=== PATIENT | female | born 1995 | race African-American/Black ===

== ENCOUNTER 2020-04-12 10:06 | Emergency (ER) | payer BC ==
[~2020-04-12] VITALS: Ht 167.6 cm; Wt 54.3 kg
--- NOTE | 2020-04-12 10:40 | NUR ---
PT A&OX4, RESP EVEN & UNLABORED, SPEECH CLEAR, SKIN WNL. C/O VAG BLEED & CRAMPING. STARTED SPOTTING YESTERDAY. WELL PULLER APPT YESTERDAY AT [facility] FOR PELVIC PAIN/CRAMPING X 2 MONTHS; NEG PG URINE TEST. LMP 03/27/20. DENIES HX STD. HAS BEEN TAKING IBUPROFEN - LAST DOSE AT MIDNIGHT. HAS U/S SCHEDULED FOR THIS SATURDAY.
--- NOTE | 2020-04-12 10:54 | NUR ---
TO U/S PER ADRIANA
[2020-04-12 11:06] LABS: MICROSCOPIC AUTO
[2020-04-12 11:35] LABS: BASOPHILS # (AUTO) 0.04 x10^3/uL (0-0.1); BASOPHILS % (AUTO) 1 % (0-1); EOSINOPHILS # (AUTO) 0.15 x10^3/uL (0-0.4); EOSINOPHILS % (AUTO) 2 % (1-7); LYMPHOCYTES # (AUTO) 2.37 x10^3/uL (1-3.4); LYMPHOCYTES % (AUTO) 37 % (22-44); MD NO; MEAN CORPUSCULAR HGB CONC 32.6 g/dL (32.4-35.8); MONOCYTES # (AUTO) 0.46 x10^3/uL (0.2-0.8); MONOCYTES % (AUTO) 7 % (2-9); NEUTROPHILS # (AUTO) 3.36 x10^3/uL (1.8-6.8); NEUTROPHILS % (AUTO) 53 % (42-75); PLATELET COUNT 284 x10^3/uL (130-400); RED BLOOD COUNT 4.66 x10^6/uL (3.82-5.3); RED CELL DISTRIBUTION WIDTH 15.5 % (9.6-15.2)
[2020-04-12 12:15] VITALS: BP 116/73
[2020-04-12] MEDS ORDERED: IBUPROFEN 200 MG TABLET ONE (12:20)
[2020-04-12] MEDS ORDERED: IBUPROFEN 200 MG TABLET PO ONE (12:30)
[2020-04-12 12:51] LABS: ALBUMIN 3.9 g/dL (3.4-5.0); ANION GAP 6 mmol/L (5-15); CALCIUM 9.3 mg/dL (8.5-10.1); CHLORIDE 111 mmol/L (98-107)
[2020-04-12 13:05] LABS: ALANINE AMINOTRANSFERASE 41 U/L (12-78); ALKALINE PHOSPHATASE 57 U/L (45-117); BILIRUBIN,TOTAL 0.5 mg/dL (0.2-1.0); CREATININE 0.59 mg/dL (0.55-1.02); TOTAL PROTEIN 7.7 g/dL (6.4-8.2)
== END 2020-04-12 12:45 | disposition home or self-care (01) ==
LOC: ED 12:30
DX: N92.1 Excessive and frequent menstruation with irregular cycle (principal); N93.8 Other specified abnormal uterine and vaginal bleeding
CPT/HCPCS: 36415; 76830; 80053; 81001; 84703; 85025; 99284

== ENCOUNTER 2020-07-19 09:52 | Emergency (ER) | payer BC ==
[~2020-07-19] VITALS: Ht 170.2 cm; Wt 56.7 kg
--- NOTE | 2020-07-19 10:30 | NUR ---
Pt records requested from [facility].
--- NOTE | 2020-07-19 10:35 | NUR ---
pt presents to ED with complaint of bilateral lower abd pain for the past 5 months, becoming more sharp in the last two days. pt states she had one emesis this am but otherwise has had no n/v/d. pt denies other sx. pt has outpatient colonoscopy scheduled, states she has been diagnosed with IBS in the past. pt instructed to provide clean catch ua, up to bathroom at this time with steady gait.
[2020-07-19 11:16] LABS: ALANINE AMINOTRANSFERASE 32 U/L (12-78); ALBUMIN 3.8 g/dL (3.4-5.0); ANION GAP 5 mmol/L (5-15); CALCIUM 9.4 mg/dL (8.5-10.1); CHLORIDE 107 mmol/L (98-107); CREATININE 0.55 mg/dL (0.55-1.02)
[2020-07-19 11:17] LABS: BASOPHILS % (AUTO) 1 % (0-1); EOSINOPHILS % (AUTO) 3 % (1-7); LYMPHOCYTES % (AUTO) 37 % (22-44); MEAN CORPUSCULAR HEMOGLOBIN 28.4 pg (27.0-34.8); MEAN CORPUSCULAR HGB CONC 32.4 g/dL (32.4-35.8); MEAN PLATELET VOLUME 7.1 fL (7.4-10.4); MONOCYTES % (AUTO) 9 % (2-9); NEUTROPHILS % (AUTO) 51 % (42-75); PLATELET COUNT 276 x10^3/uL (130-400); RED BLOOD COUNT 4.85 x10^6/uL (3.82-5.3); RED CELL DISTRIBUTION WIDTH 16.6 % (9.6-15.2)
[2020-07-19 11:20] LABS: ALKALINE PHOSPHATASE 67 U/L (45-117); BILIRUBIN,TOTAL 0.4 mg/dL (0.2-1.0); TOTAL PROTEIN 7.3 g/dL (6.4-8.2)
[2020-07-19 11:22] LABS: MD NO
[2020-07-19 11:37] LABS: MICROSCOPIC AUTO
[2020-07-19] MEDS ORDERED: KETOROLAC 30 MG/1 ML ONE (11:59)
[2020-07-19] MEDS ORDERED: DIAZEPAM 5 MG TABLET ONE (11:59)
[2020-07-19] MEDS ORDERED: DIAZEPAM 5 MG TABLET PO ONE (12:00)
[2020-07-19] MEDS ORDERED: KETOROLAC 30 MG/1 ML IM ONE (12:00)
--- NOTE | 2020-07-19 12:36 | NUR ---
pt medicated per emar, tolerated well. pt to be discharged.
[2020-07-19 13:05] VITALS: BP 102/69
== END 2020-07-19 13:06 | disposition home or self-care (01) ==
LOC: ED 10:28
DX: S39.012A Strain of muscle, fascia and tendon of lower back, initial encounter (principal); R10.30 Lower abdominal pain, unspecified; X58.XXXA Exposure to other specified factors, initial encounter; Y93.89 Activity, other specified; Y92.89 Other specified places as the place of occurrence of the external cause; Y99.8 Other external cause status
CPT/HCPCS: 36415; 80053; 81001; 84703; 85025; 96372; 99283; J1885

== ENCOUNTER 2020-08-11 11:03 | Emergency (ER) | payer BC ==
[~2020-08-11] VITALS: Ht 167.6 cm; Wt 57.9 kg
[2020-08-11 11:50] LABS: BASOPHILS % (AUTO) 1 % (0-1); EOSINOPHILS % (AUTO) 4 % (1-7); LYMPHOCYTES % (AUTO) 42 % (22-44); MEAN CORPUSCULAR HEMOGLOBIN 28.8 pg (27.0-34.8); MEAN CORPUSCULAR HGB CONC 33.4 g/dL (32.4-35.8); MEAN PLATELET VOLUME 7.2 fL (7.4-10.4); MONOCYTES % (AUTO) 7 % (2-9); NEUTROPHILS % (AUTO) 47 % (42-75); PLATELET COUNT 288 x10^3/uL (130-400); RED BLOOD COUNT 5.08 x10^6/uL (3.82-5.3); RED CELL DISTRIBUTION WIDTH 17.2 % (9.6-15.2)
[2020-08-11 11:52] LABS: MD NO
[2020-08-11 12:00] LABS: ANION GAP 7 mmol/L (5-15); CALCIUM 9.6 mg/dL (8.5-10.1); CHLORIDE 107 mmol/L (98-107)
[2020-08-11 12:01] LABS: ALANINE AMINOTRANSFERASE 43 U/L (12-78); ALBUMIN 4.1 g/dL (3.4-5.0); ALKALINE PHOSPHATASE 72 U/L (45-117); BILIRUBIN,TOTAL 0.6 mg/dL (0.2-1.0); TOTAL PROTEIN 8.2 g/dL (6.4-8.2)
--- NOTE | 2020-08-11 12:19 | NUR ---
PATIENT TO ROOM FROM LOBBY, GAIT STEADY.
--- NOTE | 2020-08-11 12:32 | NUR ---
UA COLLECTED AND SENT
--- NOTE | 2020-08-11 12:35 | NUR ---
THIS IS A 24 YO FEMALE COMING IN WITH INTERMITTENT SUPRAPUBIC ABD PAIN X2 WEEKS WITH MILD N/V. DENIES DIARRHEA OR CONSTIPATION. HAS COLONOSCOPY SCHEDULED. DENIES ANY OTHER COMPLAINTS AT THIS TIME. CALL LIGHT IN REACH, VSS. CALL LIGHT IN REACH
[2020-08-11 12:42] LABS: MICROSCOPIC AUTO
[2020-08-11 13:59] VITALS: BP 110/81
--- NOTE | 2020-08-11 14:23 | NUR ---
Patient/Caregiver given discharge instructions and they have confirmed that they understand the instructions. Patient ambulatory with steady gait.
== END 2020-08-11 14:24 | disposition home or self-care (01) ==
LOC: ED 14:16
DX: K21.00 Gastro-esophageal reflux disease with esophagitis, without bleeding (principal); R11.2 Nausea with vomiting, unspecified
CPT/HCPCS: 36415; 80053; 81001; 84703; 85025; 99283

== ENCOUNTER 2020-10-01 13:59 | Emergency (ER) | payer BC ==
[~2020-10-01] VITALS: Ht 170.2 cm; Wt 57.5 kg
[2020-10-01] MEDS ORDERED: KETOROLAC 30 MG/1 ML ONE (15:22)
[2020-10-01] MEDS ORDERED: ACETAMINOPHEN 325 MG TABLET ONE (15:22)
[2020-10-01] MEDS ORDERED: METHOCARBAMOL 750 MG TABLET ONE (15:22)
[2020-10-01] MEDS ORDERED: KETOROLAC 30 MG/1 ML IM ONE (15:30)
[2020-10-01] MEDS ORDERED: METHOCARBAMOL 750 MG TABLET PO ONE (15:30)
[2020-10-01] MEDS ORDERED: ACETAMINOPHEN 325 MG TABLET PO ONE (15:30)
[2020-10-01 15:53] VITALS: BP 118/78
== END 2020-10-01 16:20 | disposition home or self-care (01) ==
LOC: ED 15:21
DX: S16.1XXA Strain of muscle, fascia and tendon at neck level, initial encounter (principal); M54.5 Low back pain; R07.89 Other chest pain; K21.9 Gastro-esophageal reflux disease without esophagitis; X58.XXXA Exposure to other specified factors, initial encounter; Y93.89 Activity, other specified; Y92.89 Other specified places as the place of occurrence of the external cause; Y99.8 Other external cause status
CPT/HCPCS: 36415; 71045; 72110; 84703; 96372; 99284; J1885

== ENCOUNTER 2020-11-09 11:56 | Emergency (ER) | payer SELFPAY ==
[~2020-11-09] VITALS: Ht 167.6 cm; Wt 57.9 kg
[2020-11-09] MEDS ORDERED: SODIUM CHLORIDE FLUSH 10ML SYR IVF ONE (12:30)
[2020-11-09 12:31] LABS: BASOPHILS % (AUTO) 1 % (0-1); EOSINOPHILS % (AUTO) 2 % (1-7); LYMPHOCYTES % (AUTO) 40 % (22-44); MD NO; MEAN CORPUSCULAR HGB CONC 33.8 g/dL (32.4-35.8); MEAN PLATELET VOLUME 6.8 fL (7.4-10.4); MONOCYTES % (AUTO) 8 % (2-9); NEUTROPHILS % (AUTO) 49 % (42-75); PLATELET COUNT 284 x10^3/uL (130-400); RED BLOOD COUNT 4.97 x10^6/uL (3.82-5.3); RED CELL DISTRIBUTION WIDTH 16.4 % (9.6-15.2)
--- NOTE | 2020-11-09 12:36 | NUR ---
SALES HOST: PT AMBULATORY TO ROOM FROM LOBBY
[2020-11-09 12:42] LABS: ALANINE AMINOTRANSFERASE 57 U/L (12-78); ANION GAP 7 mmol/L (5-15); CALCIUM 9.1 mg/dL (8.5-10.1); CHLORIDE 107 mmol/L (98-107)
[2020-11-09 12:47] LABS: MICROSCOPIC AUTO
[2020-11-09 12:47] LABS: ALKALINE PHOSPHATASE 81 U/L (45-117); BILIRUBIN,TOTAL 0.4 mg/dL (0.2-1.0); TOTAL PROTEIN 8.2 g/dL (6.4-8.2)
--- NOTE | 2020-11-09 13:24 | NUR ---
pt in bed with no signs or symptoms of acute distress ntoed respirations even and unlabored bed rails up bilaterally and provider at bedside to assess
[2020-11-09] MEDS ORDERED: SODIUM CHLORIDE 0.9% 1,000ML IVBOLUS ONE (13:30)
[2020-11-09] MEDS ORDERED: ONDANSETRON 2MG/ML, 2ML IVPush ONE (13:30)
[2020-11-09] MEDS ORDERED: SODIUM CHLORIDE 0.9% 1,000 ML IV ONE (13:30)
[2020-11-09] MEDS ORDERED: HYDROmorphone 1 MG/ML, 1ML INJ ONE (13:41)
[2020-11-09] MEDS ORDERED: ONDANSETRON 2MG/ML, 2ML ONE (13:41)
[2020-11-09] MEDS ORDERED: HYDROmorphone 2 MG/ML, 1ML IVPush PRN (14:00)
[2020-11-09 15:50] VITALS: BP 110/74
== END 2020-11-09 15:59 | disposition home or self-care (01) ==
LOC: ED 15:40
DX: N30.00 Acute cystitis without hematuria (principal); R10.30 Lower abdominal pain, unspecified; R11.2 Nausea with vomiting, unspecified; R10.9 Unspecified abdominal pain
CPT/HCPCS: 36415; 76830; 80053; 81001; 84703; 85025; 87086; 96361; 96374; 96375; 99285; J1170; J2405; J7030

== ENCOUNTER 2021-01-01 11:22 | Emergency (ER) | payer BC ==
[~2021-01-01] VITALS: Ht 170.2 cm; Wt 60.4 kg
--- NOTE | 2021-01-01 11:32 | NUR ---
juvenile counselor: EKG done in triage
--- NOTE | 2021-01-01 11:50 | NUR ---
at bedside for exam.
--- NOTE | 2021-01-01 12:01 | NUR ---
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 Pt states last period was normal and last month, positive [employer] test yesterday with nausea x2 weeks without emesis and mild constipation. Pt denies vaginal bleeding/discharge/pain or cramping with mild diffuse abd pain over all quadrants for the last 2 weeks.
[2021-01-01 12:30] LABS: BASOPHILS % (AUTO) 1 % (0-1); EOSINOPHILS % (AUTO) 2 % (1-7); LYMPHOCYTES % (AUTO) 24 % (22-44); MEAN CORPUSCULAR HEMOGLOBIN 29.8 pg (27.0-34.8); MEAN CORPUSCULAR HGB CONC 34.1 g/dL (32.4-35.8); MEAN PLATELET VOLUME 7.1 fL (7.4-10.4); MONOCYTES % (AUTO) 9 % (2-9); NEUTROPHILS % (AUTO) 64 % (42-75); PLATELET COUNT 261 x10^3/uL (130-400); RED BLOOD COUNT 4.92 x10^6/uL (3.82-5.3); RED CELL DISTRIBUTION WIDTH 15.5 % (9.6-15.2)
[2021-01-01] MEDS ORDERED: LORazepam 2 MG/ML, 1ML IVPush ONE (12:30)
[2021-01-01] MEDS ORDERED: SODIUM CHLORIDE 0.9% 1,000ML IVBOLUS ONE (12:30)
[2021-01-01] MEDS ORDERED: SODIUM CHLORIDE FLUSH 10ML SYR IVF ONE (12:30)
--- NOTE | 2021-01-01 12:34 | NUR ---
Pt returned with UA sample as requested, IV started and NS bolus running without issue. Pt declined admin of Ativan stating she was feeling anxious when she first arrived but no longer feels so now.
[2021-01-01 12:42] LABS: ALBUMIN 3.9 g/dL (3.4-5.0); ANION GAP 5 mmol/L (5-15); CALCIUM 9.5 mg/dL (8.5-10.1); CHLORIDE 108 mmol/L (98-107); CREATININE 0.82 mg/dL (0.55-1.02)
[2021-01-01 13:01] LABS: MICROSCOPIC AUTO
--- NOTE | 2021-01-01 13:13 | NUR ---
Lab results reviewed. Positive beta HCG noted with small occult blood in UA noted.
--- NOTE | 2021-01-01 14:05 | NUR ---
US results reviewed and chart marked for recheck by .
--- NOTE | 2021-01-01 14:33 | NUR ---
Pt back from US at this time.
--- NOTE | 2021-01-01 14:50 | NUR ---
Today's US results reviewed and chart marked for recheck again.
--- NOTE | 2021-01-01 15:45 | NUR ---
task RN: pt sitting up on gurney in no appant distress. awaiting recheck
[2021-01-01 16:22] VITALS: BP 102/64
== END 2021-01-01 16:24 | disposition home or self-care (01) ==
LOC: ED 14:29
DX: Z32.01 Encounter for pregnancy test, result positive (principal); O26.891 Other specified pregnancy related conditions, first trimester; R10.30 Lower abdominal pain, unspecified; O21.8 Other vomiting complicating pregnancy; K21.9 Gastro-esophageal reflux disease without esophagitis; O99.331 Smoking (tobacco) complicating pregnancy, first trimester; Z3A.01 Less than 8 weeks gestation of pregnancy
CPT/HCPCS: 76830; 80048; 81001; 82040; 84702; 85025; 93005; 96360; 99285; J7030; 36415; 84703

== ENCOUNTER 2021-01-16 11:51 | Emergency (ER) | payer BC ==
[~2021-01-16] VITALS: Ht 170.2 cm; Wt 60.6 kg
[2021-01-16] MEDS ORDERED: SODIUM CHLORIDE 0.9% 1,000ML IVBOLUS ONE (12:30)
[2021-01-16] MEDS ORDERED: ONDANSETRON 2MG/ML, 2ML IVPush ONE (12:30)
[2021-01-16 12:43] LABS: BASOPHILS % (AUTO) 1 % (0-1); EOSINOPHILS % (AUTO) 1 % (1-7); LYMPHOCYTES % (AUTO) 28 % (22-44); MEAN CORPUSCULAR HEMOGLOBIN 29.9 pg (27.0-34.8); MEAN CORPUSCULAR HGB CONC 33.9 g/dL (32.4-35.8); MONOCYTES % (AUTO) 7 % (2-9); NEUTROPHILS % (AUTO) 64 % (42-75); PLATELET COUNT 275 x10^3/uL (130-400); RED BLOOD COUNT 5.14 x10^6/uL (3.82-5.3); RED CELL DISTRIBUTION WIDTH 15.5 % (9.6-15.2)
[2021-01-16] MEDS ORDERED: ONDANSETRON 2MG/ML, 2ML ONE (12:48)
[2021-01-16 12:49] LABS: MD NO
[2021-01-16 12:57] LABS: ALANINE AMINOTRANSFERASE 28 U/L (12-78); ALBUMIN 3.8 g/dL (3.4-5.0); ANION GAP 5 mmol/L (5-15); CALCIUM 9.3 mg/dL (8.5-10.1); CHLORIDE 107 mmol/L (98-107); CREATININE 0.47 mg/dL (0.55-1.02)
[2021-01-16 13:13] LABS: ALKALINE PHOSPHATASE 52 U/L (45-117); BILIRUBIN,TOTAL 0.5 mg/dL (0.2-1.0); TOTAL PROTEIN 7.6 g/dL (6.4-8.2)
--- NOTE | 2021-01-16 13:20 | NUR ---
Pt in US.
[2021-01-16 14:42] LABS: MICROSCOPIC INDICATED
[2021-01-16 15:08] VITALS: BP 109/70
== END 2021-01-16 15:26 | disposition home or self-care (01) ==
LOC: ED 15:20
DX: O26.891 Other specified pregnancy related conditions, first trimester (principal); R10.2 Pelvic and perineal pain; O21.8 Other vomiting complicating pregnancy; K21.9 Gastro-esophageal reflux disease without esophagitis; Z3A.08 8 weeks gestation of pregnancy
CPT/HCPCS: 36415; 76801; 80053; 81001; 84702; 85025; 96361; 96374; 99284; J2405; J7030

== ENCOUNTER 2021-05-25 13:11 | Emergency (ER) | payer BC ==
[~2021-05-25] VITALS: Ht 170.2 cm; Wt 66.0 kg
[2021-05-25 13:45] LABS: MICROSCOPIC INDICATED
[2021-05-25 14:28] LABS: BASOPHILS % (AUTO) 1 % (0-1); EOSINOPHILS % (AUTO) 1 % (1-7); LYMPHOCYTES % (AUTO) 17 % (22-44); MEAN CORPUSCULAR HGB CONC 33.7 g/dL (32.4-35.8); MEAN PLATELET VOLUME 7.1 fL (7.4-10.4); MONOCYTES % (AUTO) 8 % (2-9); NEUTROPHILS % (AUTO) 73 % (42-75); PLATELET COUNT 277 x10^3/uL (130-400); RED BLOOD COUNT 4.03 x10^6/uL (3.82-5.3); RED CELL DISTRIBUTION WIDTH 14.5 % (9.6-15.2)
[2021-05-25 14:40] LABS: ALBUMIN 2.7 g/dL (3.4-5.0); ANION GAP 6 mmol/L (5-15); CALCIUM 8.8 mg/dL (8.5-10.1); CHLORIDE 104 mmol/L (98-107)
[2021-05-25 14:58] LABS: ALANINE AMINOTRANSFERASE 17 U/L (12-78); ALKALINE PHOSPHATASE 69 U/L (45-117); BILIRUBIN,TOTAL 0.3 mg/dL (0.2-1.0); CREATININE 0.39 mg/dL (0.55-1.02); TOTAL PROTEIN 6.8 g/dL (6.4-8.2)
--- NOTE | 2021-05-25 15:05 | NUR ---
pt walked to room from lobby.
[2021-05-25] MEDS ORDERED: SODIUM CHLORIDE FLUSH 10ML SYR IVF ONE (15:30)
[2021-05-25] MEDS ORDERED: MAALOX/HYOSCYAMINE/LIDOCAINE 45 ML BTL PO ONE (15:30)
[2021-05-25] MEDS ORDERED: SODIUM CHLORIDE 0.9% 1,000ML IVBOLUS ONE (15:30)
--- NOTE | 2021-05-25 15:43 | NUR ---
[facility] called for [facility], stated they will send nurse down when available.
[2021-05-25] MEDS ORDERED: MAALOX/HYOSCYAMINE/LIDOCAINE 45 ML BTL ONE (15:51)
--- NOTE | 2021-05-25 15:54 | NUR ---
pt refusing IV and IV fuids. Md aware. no vomiting noted at this time.
[2021-05-25 16:55] VITALS: BP 101/60
--- NOTE | 2021-05-25 17:00 | NUR ---
PT REC'VD DISCHARGE INSTRUCTIONS AND EDUCATION. PT HAD NO FURTHER WQUESTIONS. PT AMBULATED WITH SPOUSE TO DC AREA, STEADY GAIT.
== END 2021-05-25 17:04 | disposition home or self-care (01) ==
LOC: ED 16:58
DX: O21.0 Mild hyperemesis gravidarum (principal); Z3A.25 25 weeks gestation of pregnancy
CPT/HCPCS: 36415; 80053; 81001; 83690; 84702; 85025; 87086; 99283

== ENCOUNTER 2021-06-07 14:07 | Outpatient (CLI) | payer BC ==
[~2021-06-07] VITALS: Ht 170.2 cm; Wt 56.8 kg
[2021-06-07 15:03] LABS: MICROSCOPIC INDICATED
[2021-06-07 15:04] LABS: AMPHETAMINE SCREEN, URINE Negative (Negative); BARBITURATE SCREEN, URINE Negative (Negative); BENZODIAZEPINE SCREEN, URINE Negative (Negative); CANNABINOID SCREEN, URINE Positive (Negative); COCAINE SCREEN, URINE Negative (Negative); METHADONE SCREEN, URINE Negative (Negative); OPIATE SCREEN, URINE Negative (Negative)
[2021-06-07] MEDS ORDERED: BISACODYL 10 MG SUPP ONE (15:52)
[2021-06-07] MEDS ORDERED: BISACODYL 10 MG SUPP PR ONE (16:00)
[2021-06-07] MEDS ORDERED: PLEASE ENTER HEIGHT AND WEIGHT MC SCH (16:00)
[2021-06-07 16:11] VITALS: BP 107/65
== END 2021-06-07 20:36 | disposition home or self-care (01) ==
LOC: LDOP 14:07
PROVIDERS: ATTEND Obstetrics & Gynecology
DX: O98.512 Other viral diseases complicating pregnancy, second trimester (principal); R10.9 Unspecified abdominal pain; Z3A.27 27 weeks gestation of pregnancy
CPT/HCPCS: 80307; 81001; 87086; 87635; 99211; G0463